=== PATIENT | male | born 1955 | race Caucasian/White ===

== ENCOUNTER 2020-01-08 18:52 | Emergency (ER) | payer OTHER ==
[2020-01-08 19:01] VITALS: TEMP 98.3; BMI 28.3
[2020-01-08 21:31] LABS: BASO % 0.3 % (0-2.0); EOS % 1.5 % (0-4.5); HEMATOCRIT 45.4 % (35.4-49); HEMOGLOBIN 14.9 GM/dL (11.7-16.9); LYMPH % 19.1 % (8-40); MCH 29.8 pg (25.7-33.7); MCHC 32.8 g/dl (32.0-35.9); MEAN CELL VOLUME 90.8 fl (80-96); MEAN PLT VOLUME 10.2 fl (7.5-11.1); MONO % 12.1 % (3.8-10.2); PLATELET COUNT 162 K/MM3 (134-434); RDW 13.3 % (11.9-15.9); WHITE BLOOD COUNT 9.5 K/mm3 (4.0-10.0)
[2020-01-08 21:32] LABS: POTASSIUM 4.1 mmol/L (3.5-5.1)
[2020-01-08 21:34] LABS: BLOOD UREA NITROGEN 20.6 mg/dL (7-18); CALCIUM 9.1 mg/dL (8.5-10.1)
[2020-01-08 21:37] LABS: CREATININE 0.9 mg/dL (0.55-1.3)
[2020-01-08 21:39] LABS: BILIRUBIN,TOTAL 0.3 mg/dL (0.2-1); TOT PROT 7.3 g/dl (6.4-8.2)
[2020-01-08 22:18] LABS: EPI CELLS 3 /uL (0-25.1); HYALINE CASTS 0 /uL (0-3.1); PH,URINE 5.5 (5.0-8.0); URINE APPEARANCE CLEAR; URINE BACTERIA 3 /uL (0-1359); URINE BILIRUBIN NEGATIVE (NEGATIVE); URINE COLOR YELLOW; URINE GLUCOSE (UA) NEGATIVE (NEGATIVE); URINE KETONE NEGATIVE (NEGATIVE); URINE LEUK ESTERASE NEGATIVE (NEGATIVE); URINE NITRITE NEGATIVE (NEGATIVE); URINE PROTEIN NEGATIVE (NEGATIVE); URINE RBC 18 /uL (0-23.9); URINE UROBILINOGEN 0.2 mg/dL (0.2-1.0); URINE WBC 3 /uL (0-25.8)
[2020-01-08] MEDS ORDERED: KETOROLAC TROMETHAMINE 15 MG/ML VIAL IVPUSH ONE (22:42)
[2020-01-08] MEDS ORDERED: KETOROLAC TROMETHAMINE 15 MG/ML VIAL ONE (23:45)
[2020-01-08] MEDS ORDERED: ONDANSETRON *ODT* 4 MG TABLET SL ONE (23:57)
[2020-01-09] MEDS ORDERED: ONDANSETRON *ODT* 4 MG TABLET ONE (00:05)
[2020-01-09 00:33] VITALS: BP 134/79; PULSE 85
[2020-01-09] MEDS ORDERED: DEXAMETHASONE SOD PHOSPHATE 10 MG/1 ML VIAL IM ONE (00:55)
[2020-01-09] MEDS ORDERED: DEXAMETHASONE SOD PHOSPHATE 10 MG/1 ML VIAL ONE (01:05)
== END 2020-01-09 01:18 | disposition home or self-care (01) ==
LOC: JER 18:52
PROC: 3E0333Z Introduction of Anti-inflammatory into Peripheral Vein, Percutaneous Approach (ICD-10-PCS; principal; 2020-01-08)
PROC: 3E033GC Introduction of Other Therapeutic Substance into Peripheral Vein, Percutaneous Approach (ICD-10-PCS; 2020-01-09)
DX: R30.0 Dysuria (principal); M54.5 Low back pain
CPT/HCPCS: 36415; 72148-TC; 74176-TC; 80053; 81003; 85025; 87086; 93005; 93010; 99285-25; J1100; Q0162

== ENCOUNTER 2020-01-21 11:15 | Emergency (ER) | payer OTHER ==
[2020-01-21] MEDS ORDERED: DIPHTH,PERTUSS(ACELL),TET 0.5 ML DISP.SYRIN IM ONE ×2 (12:30→12:33)
[2020-01-21 12:32] VITALS: BP 134/67; PULSE 67; TEMP 97.2; BMI 30.7
== END 2020-01-21 12:38 | disposition home or self-care (01) ==
LOC: JERFT 11:15
PROC: 0HQGXZZ Repair Left Hand Skin, External Approach (ICD-10-PCS; principal; 2020-01-21)
PROC: 3E0234Z Introduction of Serum, Toxoid and Vaccine into Muscle, Percutaneous Approach (ICD-10-PCS; 2020-01-21)
DX: S61.412A Laceration without foreign body of left hand, initial encounter (principal)
CPT/HCPCS: 90715; 99284-25

== ENCOUNTER 2020-04-09 13:37 | Emergency (ER) | payer OTHER ==
[2020-04-09 13:43] VITALS: BP 139/99; PULSE 72; TEMP 97.8; BMI 28.8
[2020-04-09 14:54] LABS: BASO % 0.5 % (0-2.0); EOS % 3.6 % (0-4.5); HEMATOCRIT 43.7 % (35.4-49); HEMOGLOBIN 14.7 GM/dL (11.7-16.9); LYMPH % 19.2 % (8-40); MCH 30.3 pg (25.7-33.7); MCHC 33.7 g/dl (32.0-35.9); MEAN CELL VOLUME 89.9 fl (80-96); MEAN PLT VOLUME 9.6 fl (7.5-11.1); MONO % 22.3 % (3.8-10.2); NEUT % 54.4 % (42.8-82.8); PLATELET COUNT 156 K/MM3 (134-434); RBC 4.86 M/mm3 (4.00-5.60); RDW 13.2 % (11.9-15.9); WHITE BLOOD COUNT 5.3 K/mm3 (4.0-10.0)
[2020-04-09 15:09] LABS: CHLORIDE 105 mmol/L (98-107); POTASSIUM 3.7 mmol/L (3.5-5.1); SODIUM 138 mmol/L (136-145)
[2020-04-09 15:12] LABS: ALBUMIN 3.7 g/dl (3.4-5.0); CALCIUM 8.9 mg/dL (8.5-10.1)
[2020-04-09 15:13] LABS: ANION GAP 5 MMOL/L (8-16); BLOOD UREA NITROGEN 15.1 mg/dL (7-18); CO2 29 mmol/L (21-32); GLUCOSE,RANDOM 78 mg/dL (74-106); MAGNESIUM 1.9 mg/dL (1.8-2.4)
[2020-04-09 15:16] LABS: BILIRUBIN,TOTAL 0.3 mg/dL (0.2-1); CREATININE 0.8 mg/dL (0.55-1.3); SGOT/AST 18 U/L (15-37); SGPT/ALT 29 U/L (13-61)
[2020-04-09 15:18] LABS: ALK PHOS 81 U/L (45-117)
[2020-04-09 16:05] LABS: ANISOCYTOSIS 0; MACROCYTOSIS 0; PLATELET ESTIMATE NORMAL
== END 2020-04-09 15:55 | disposition home or self-care (01) ==
LOC: JER 13:37
DX: R00.2 Palpitations (principal); D72.829 Elevated white blood cell count, unspecified
CPT/HCPCS: 36415; 71046-TC-FY; 80053; 82550; 83735; 84443; 84484; 85025; 93005; 93010; 99285-25